=== PATIENT | male | born 1960 | race Hispanic/Latino ===

== ENCOUNTER 2016-07-12 18:15 | Emergency (ER) | payer MEDICARE ==
[2016-07-12 19:54] LABS: Hematocrit 39.3 % (35.5-45.6); Hemoglobin 12.9 gm/dl (11.8-15.2); Mean Corpuscular HGB Conc 33 % (32-34); Mean Corpuscular Hemoglobin 31 pg (28-32); Mean Corpuscular Volume 95 fl (84-94); Platelet Count 272 K/mm3 (140-440); Red Blood Count 4.12 M/mm3 (3.65-5.03); Red Cell Distribution Width 12.9 % (13.2-15.2); White Blood Count 7.4 K/mm3 (4.5-11.0)
[2016-07-12 20:05] LABS: Anion Gap 15 mmol/L; BUN/Creatinine Ratio 11.11; Blood Urea Nitrogen 10 mg/dL (9-20); Calcium 9.6 mg/dL (8.4-10.2); Carbon Dioxide 29 mmol/L (22-30); Chloride 99.3 mmol/L (98-107); Glucose 111 mg/dL (75-100); Potassium 4.4 mmol/L (3.6-5.0); Sodium 139 mmol/L (137-145)
--- NOTE | 2016-07-12 20:30 | XRay Report ---
FINAL REPORT EXAM: XR CHEST ROUTINE 2V HISTORY: SOB,wheezing TECHNIQUE: PA and lateral views of the chest PRIORS: None. FINDINGS: Lines, tubes, and devices: N/A Lungs and pleura: Trachea is normal in position. Surgical clips in the left hilum suggest prior lobectomy. Elevation of the left hemidiaphragm and blunting of the lateral left costophrenic angle are also likely due to volume loss from prior surgery. Lungs are clear of infiltrate, pleural effusion, vascular congestion, or pneumothorax. Cardiomediastinal silhouette: Cardiac and mediastinal silhouettes are unremarkable. Other: Bony structures demonstrates anterior wedging of T12 of indeterminate age. IMPRESSION: No acute cardiopulmonary process seen. Evidence for prior lobectomy on the left lung.
[2016-07-12] MEDS ORDERED: ATROVENT IH ONE ×3 (20:34→21:14)
[2016-07-12] MEDS ORDERED: PROVENTIL IH ONE ×2 (20:34→21:15)
[2016-07-13] MEDS ORDERED: PROVENTIL IH ONE (07:02)
[2016-07-13] MEDS ORDERED: DELTASONE PO ONE (07:02)
[2016-07-13] MEDS ORDERED: ATROVENT IH ONE (07:02)
--- NOTE | 2016-07-13 07:04 | Emergency Department Report ---
HPI - General Chief Complaint: Adult Asthma Time Seen by Provider: 07/13/16 06:54 - HPI HPI: This is a 55-year-old male presents to the emergency department with complaint of a few days of shortness of breath, wheezing, dry cough that he believes is an exacerbation of his asthma or COPD. He lost his prescription insurance and therefore has been out of his spiriva and his rescue inhaler and nebulized meds for 5 days. He says that he does have a primary care physician in [place], [place]. He is not oxygen dependent but "multiple doctors told me I need to be." He has a history of a left lobectomy secondary to bad pneumonia when he was 23 years of age. He is still a tobacco smoker but down to about 1 or 2 cigarettes per day but does use one dip can per day as well. No significant travel recently or any sick contacts at home. He denies any fever, nausea, vomiting, chest pain. ED Past Medical Hx - Past Medical History Hx Arthritis: Yes Hx Asthma: Yes Hx COPD: Yes Additional medical history: carpal tunnel sx,oseoporosis in hips - Surgical History Additional Surgical History: back x2, lung removed - Social History Smoking Status: Unknown if ever smoked Substance Use Type: None - Medications Home Medications: Home Medications Medication Instructions Recorded Confirmed Last Taken Type ALBUTEROL Inhaler [ProAir HFA 2 puff IH QID PRN #1 inhalation 07/13/16 Unknown Rx Inhaler] Tiotropium [Spiriva] 18 mcg IH QDAY #1 box 07/13/16 Unknown Rx predniSONE [Deltasone] 20 mg PO BID #10 tab 07/13/16 Unknown Rx ED Review of Systems ROS: Stated complaint: Asthma Other details as noted in HPI Comment: All other systems reviewed and negative Constitutional: denies: chills, fever Eyes: denies: eye pain, eye discharge, vision change ENT: denies: ear pain, throat pain Respiratory: cough, shortness of breath, wheezing Cardiovascular: denies: chest pain, edema Gastrointestinal: denies: abdominal pain, nausea, diarrhea Genitourinary: denies: urgency, dysuria Musculoskeletal: denies: back pain, joint swelling, arthralgia Skin: denies: rash, lesions Neurological: denies: headache, weakness, paresthesias Physical Exam - Physical Exam Vital Signs: Vital Signs 07/12/16 07/12/16 07/12/16 19:16 21:18 21:30 Temperature 98.4 F Pulse Rate 86 Pulse Rate [ 78 80 Posterior] Respiratory 18 Rate Respiratory 22 25 H Rate [Posterior ] Blood Pressure 134/90 O2 Sat by Pulse 99 Oximetry 07/13/16 06:10 Temperature 97.9 F Pulse Rate 91 H Pulse Rate [ Posterior] Respiratory 20 Rate Respiratory Rate [Posterior ] Blood Pressure 145/86 O2 Sat by Pulse 100 Oximetry Physical Exam: GENERAL: The patient is well-developed well-nourished. HEENT: Normocephalic. Atraumatic. Extraocular motions are intact. Patient has moist mucous membranes. Pupils equal reactive to light bilaterally. NECK: Supple. Trachea is midline. CHEST/LUNGS: Mild to moderate wheezing throughout the chest. No tachypnea or accessory muscle use. Occasional dry cough heard during examination. There is no respiratory distress noted. HEART/CARDIOVASCULAR: Regular. There is no tachycardia. There is no gallop rub or murmur. ABDOMEN: Abdomen is soft, nontender. Patient has normal bowel sounds. There is no abdominal distention. SKIN: Skin is warm and dry.. NEURO: The patient is awake, alert, and oriented. The patient is cooperative. The patient has no focal neurologic deficits. The patient has normal speech. MUSCULOSKELETAL: There is no tenderness or deformity. There is no limitation range of motion. There is no evidence of acute injury. ED Course Vital Signs 07/12/16 07/12/16 07/12/16 19:16 21:18 21:30 Temperature 98.4 F Pulse Rate 86 Pulse Rate [ 78 80 Posterior] Respiratory 18 Rate Respiratory 22 25 H Rate [Posterior ] Blood Pressure 134/90 O2 Sat by Pulse 99 Oximetry 07/13/16 06:10 Temperature 97.9 F Pulse Rate 91 H Pulse Rate [ Posterior] Respiratory 20 Rate Respiratory Rate [Posterior ] Blood Pressure 145/86 O2 Sat by Pulse 100 Oximetry ED Medical Decision Making - Lab Data Result diagrams: 07/12/16 19:35 07/12/16 19:35 - Radiology Data Radiology results: image reviewed interpreted by me: Chest x-ray did not show any acute process. Heart is normal shape and size. No effusions. No pneumothorax. No signs of pneumonia seen. - Medical Decision Making 55-year-old male with a history of asthma and COPD and tobacco abuse presents with some wheezing, shortness of breath and cough for the past few days after running out of his Spiriva and albuterol inhaler. Patient does have some mild to moderate bronchospasm but does not appear to be in any respiratory distress. Chest x-ray shows his previous left lobectomy but otherwise no signs of pneumonia, pleural effusions, pneumothorax or any acute processes. His CBC and metabolic panel did not show any significant lab abnormalities. He was given steroids and a second breathing treatment and upon reevaluation he is feeling better and only has some mild expiratory wheezing. Vital signs stable including being afebrile and no hypoxia. He appears safe for discharge home at this time. He was given a refill of his medications, encouragement to follow- up with his primary care doctor and he will return to the ER with any worsening of his symptoms or any acute distress. - Differential Diagnosis asthma, COPD, pneumonia, CHF Critical Care Time: No Critical care attestation.: If time is entered above; I have spent that time in minutes in the direct care of this critically ill patient, excluding procedure time. ED Disposition Clinical Impression: Asthma exacerbation, Tobacco abuse COPD (chronic obstructive pulmonary disease) Qualifiers: COPD type: chronic bronchitis Chronic bronchitis type: unspecified Qualified Code(s): J42 - Unspecified chronic bronchitis Disposition: DISCHARGED TO HOME OR SELFCARE Is pt being admited?: No Condition: Stable Instructions: Asthma (ED), Chronic Obstructive Pulmonary Disease (ED) Additional Instructions: These follow-up with your primary care doctor as soon as possible. Please try to quit all smoking and/or tobacco products. Return to the emergency department with any worsening of your symptoms or any acute distress. Prescriptions: ALBUTEROL Inhaler [ProAir HFA Inhaler] 2 puff IH QID PRN #1 inhalation PRN Reason: Shortness Of Breath predniSONE [Deltasone] 20 mg PO BID #10 tab Tiotropium [Spiriva] 18 mcg IH QDAY #1 box Referrals: PRIMARY CARE, [Primary Care Provider] - 3-5 Days Time of Disposition: 08:58
[2016-07-13 09:09] VITALS: BP 128/84
== END 2016-07-13 09:10 | disposition home or self-care (01) ==
LOC: ED 18:15
DX: J45.901 Unspecified asthma with (acute) exacerbation (principal); J42 Unspecified chronic bronchitis; M19.90 Unspecified osteoarthritis, unspecified site
CPT/HCPCS: 36415; 71020; 80048; 85027; 94640; 99284; J7512

== ENCOUNTER 2016-07-19 20:32 | Emergency (ER) | payer MEDICARE ==
--- NOTE | 2016-07-19 21:08 | Emergency Department Report ---
HPI - General Time Seen by Provider: 07/19/16 20:57 - HPI HPI: This is a 55-year-old male presents to the emergency department by EMS from the [facility] for a medical clearance. The patient is currently at the [facility] for depression. However today the patient had an exacerbation of his depression and the patient was made a 1013 by the facility and will be going to [facility] for inpatient treatment. However he was sent here for further evaluation and medical clearance. The patient's complaints are for generalized body aches. He has a significant history of arthritis and admits to the pain/ aches being chronic in nature. There has been no trauma, falls, altercations that would have caused his discomfort. The 1013 was signed by the psychiatry staff and it says that the patient has been feeling hopeless and depressed and verbalized to them that he was going to "end it all if I have to live like this. " ED Past Medical Hx - Past Medical History Previous Medical History?: Yes Hx Arthritis: Yes Hx Psychiatric Treatment: Yes (at [facility]) Hx Asthma: Yes Hx COPD: Yes Additional medical history: carpal tunnel sx,oseoporosis in hips - Surgical History Past Surgical History?: Yes Additional Surgical History: back x2, lung removed - Social History Smoking Status: Never Smoker Substance Use Type: None - Medications Home Medications: Home Medications Medication Instructions Recorded Confirmed Last Taken Type ALBUTEROL Inhaler [ProAir HFA 2 puff IH QID PRN #1 inhalation 07/13/16 Unknown Rx Inhaler] Tiotropium [Spiriva] 18 mcg IH QDAY #1 box 07/13/16 Unknown Rx predniSONE [Deltasone] 20 mg PO BID #10 tab 07/13/16 Unknown Rx ED Review of Systems ROS: Stated complaint: BODY PAIN Other details as noted in HPI Comment: All other systems reviewed and negative Constitutional: denies: chills, fever Eyes: denies: eye pain, eye discharge, vision change ENT: denies: ear pain, throat pain Respiratory: denies: cough, shortness of breath, wheezing Cardiovascular: denies: chest pain, palpitations Gastrointestinal: denies: abdominal pain, nausea, diarrhea Genitourinary: denies: urgency, dysuria Musculoskeletal: myalgia. denies: joint swelling Skin: denies: rash, lesions Neurological: denies: headache, weakness, paresthesias Physical Exam - Physical Exam Physical Exam: GENERAL: The patient is well-developed well-nourished. HEENT: Normocephalic. Atraumatic. Extraocular motions are intact. Patient has moist mucous membranes. NECK: Supple. Trachea is midline. CHEST/LUNGS: Clear to auscultation. There is no respiratory distress noted. HEART/CARDIOVASCULAR: Regular. There is no tachycardia. There is no gallop rub or murmur. ABDOMEN: Abdomen is soft, nontender. Patient has normal bowel sounds. There is no abdominal distention. SKIN: There is no rash. There is no edema. There is no diaphoresis. NEURO: The patient is awake, alert, and oriented. The patient is cooperative. The patient has no focal neurologic deficits. The patient has normal speech. MUSCULOSKELETAL: There is no tenderness or deformity. There is no limitation range of motion. There is no evidence of acute injury. ED Medical Decision Making - Lab Data Result diagrams: 07/19/16 21:17 07/19/16 21:17 - Medical Decision Making 55-year-old male presents emergency department for a medical clearance so that he can go from the voluntary portion of the large to the involuntary admission of [facility]. Patient's only complaint is some chronic body pains and aches. He is seen moving all of his extremities and does not appear in any acute distress. There is no recent trauma or altercation. Patient has been calm while in the emergency department. He had a complete blood count count and a basic metabolic panel and a CK level done that was unremarkable. Vital signs stable throughout his ED course. The patient appears cleared to return to his psychiatric facility. - Differential Diagnosis depression, schizophrenia, fibromyalgia, muscle spasm Critical Care Time: No Critical care attestation.: If time is entered above; I have spent that time in minutes in the direct care of this critically ill patient, excluding procedure time. ED Disposition Clinical Impression: Medical clearance for psychiatric admission Disposition: [id number]/[id number] PSY HOSP/PSY UNIT Is pt being admited?: No Condition: Good Additional Instructions: Please follow-up with a primary care physician once you're able to do so and done with [facility]. Return to the emergency department with any acute distress. Referrals: [facility] [Outside] - 3-5 Days Time of Disposition: 22:22
[2016-07-19 21:28] LABS: Basophils % (Auto) 0.7 % (0.0-1.8); Eosinophils % (Auto) 1.9 % (0.0-4.3); Hematocrit 37.8 % (35.5-45.6); Hemoglobin 12.7 gm/dl (11.8-15.2); Mean Corpuscular HGB Conc 34 % (32-34); Mean Corpuscular Hemoglobin 32 pg (28-32); Mean Corpuscular Volume 96 fl (84-94); Platelet Count 225 K/mm3 (140-440); Red Blood Count 3.96 M/mm3 (3.65-5.03); Red Cell Distribution Width 12.9 % (13.2-15.2); White Blood Count 7.1 K/mm3 (4.5-11.0)
[2016-07-19 22:15] LABS: Anion Gap 14 mmol/L; BUN/Creatinine Ratio 21.11; Blood Urea Nitrogen 19 mg/dL (9-20); Calcium 9.1 mg/dL (8.4-10.2); Carbon Dioxide 33 mmol/L (22-30); Chloride 101.8 mmol/L (98-107); Glucose 108 mg/dL (75-100); Potassium 4.2 mmol/L (3.6-5.0); Sodium 145 mmol/L (137-145)
== END 2016-07-19 23:00 ==
LOC: ED 20:32 → EEVIPCON 20:32 → ED 23:00
DX: Z00.8 Encounter for other general examination (principal); M19.90 Unspecified osteoarthritis, unspecified site; J45.909 Unspecified asthma, uncomplicated; J44.9 Chronic obstructive pulmonary disease, unspecified
CPT/HCPCS: 36415; 80048; 82550; 85025; 99283

== ENCOUNTER 2016-08-11 09:42 | Emergency (ER) | payer MEDICARE ==
[2016-08-11 11:14] VITALS: BP 132/63
--- NOTE | 2016-08-11 11:54 | Emergency Department Report ---
ED Medical Clearance HPI - General Chief complaint: Pain General Stated complaint: HX RX/OSTEOMYLITIS,BODY ACHES Time Seen by Provider: 08/11/16 11:20 Source: patient Mode of arrival: Ambulatory - History of Present Illness Initial comments: This is a 55-year-old male that presents to the ER with c/o of unable to fill Suboxone due to it being expensive. Patient stated went to [facility] pharmacy and was told that the medication for one month is $300. Patient stated he can not afford that. Patient stated he would like a prescription for narcotic that is cheaper. Patient stated he received Suboxone that his chronic back pain and chronic bilateral hip pain due to osteoarthritis and rheumatoid arthritis. Patient stated Suboxone has been filled by his primary care doctor last week. Patient has been taking [id number] ibuprofen, naproxen and Tylenol with mild relief. Patient denies any new symptoms or trauma to the area. Patient denies any trauma, numbness, tingling, fever, chills, joint swelling, joint numbness, chest pain, shortness of breath. Patient denies any complaints today upon this visit. Denies any drug allergies. MD Complaint: other (medication change) -: Gradual, year(s) Alledged Intoxication: No Compliant with Home Medications: Yes (as per patient) Traumatic Symptoms: denies traumatic injury Associated Symptoms: denies: chest pain, shortness of breath, palpitations, diaphoresis, denies other symptoms, confusion, cough, fever/chills, headaches, anorexia, malaise, nausea/vomiting, rash, seizure, syncope, weakness Treatments Prior to Arrival: none Home medications: Previous Rx's Medication Instructions Recorded Last Taken Type ALBUTEROL Inhaler [ProAir HFA 2 puff IH QID PRN #1 inhalation 07/13/16 Unknown Rx Inhaler] Tiotropium [Spiriva] 18 mcg IH QDAY #1 box 07/13/16 Unknown Rx predniSONE [Deltasone] 20 mg PO BID #10 tab 07/13/16 Unknown Rx Allergies/Adverse reactions: Allergies Allergy/AdvReac Type Severity Reaction Status Date / Time bee venom (honey bee) Allergy Swelling Verified 08/11/16 09:49 ED Review of Systems ROS: Stated complaint: HX RX/OSTEOMYLITIS,BODY ACHES Other details as noted in HPI Constitutional: denies: chills, fever Eyes: denies: eye pain, eye discharge, vision change ENT: denies: ear pain, throat pain Respiratory: denies: cough, shortness of breath, wheezing Cardiovascular: denies: chest pain, palpitations Endocrine: no symptoms reported Gastrointestinal: denies: abdominal pain, nausea, diarrhea Genitourinary: denies: urgency, dysuria Musculoskeletal: denies: back pain, joint swelling, arthralgia Skin: denies: rash, lesions Neurological: denies: headache, weakness, paresthesias Psychiatric: denies: anxiety, depression Hematological/Lymphatic: denies: easy bleeding, easy bruising ED Past Medical Hx - Past Medical History Hx Arthritis: Yes (rheumatoid) Hx Psychiatric Treatment: Yes (at [facility] / ANXIETY / DEPRESSION) Hx Asthma: Yes Hx COPD: Yes Additional medical history: carpal tunnel sx,osteoporosis in hips. chronic pain. HERNIAS - Surgical History Additional Surgical History: back x2, PARTIAL LEFT lung removed - Social History Smoking Status: Current Every Day Smoker Substance Use Type: Prescribed - Medications Home Medications: Home Medications Medication Instructions Recorded Confirmed Last Taken Type ALBUTEROL Inhaler [ProAir HFA 2 puff IH QID PRN #1 inhalation 07/13/16 Unknown Rx Inhaler] Tiotropium [Spiriva] 18 mcg IH QDAY #1 box 07/13/16 Unknown Rx predniSONE [Deltasone] 20 mg PO BID #10 tab 07/13/16 Unknown Rx ED Physical Exam - General Limitations: Physical Limitation General appearance: alert, in no apparent distress - Head Head exam: Present: atraumatic, normocephalic, normal inspection - Eye Eye exam: Present: normal appearance, PERRL, EOMI. Absent: scleral icterus, conjunctival injection, nystagmus, periorbital swelling, periorbital tenderness Pupils: Present: normal accommodation - ENT ENT exam: Present: normal exam, normal orophraynx, mucous membranes moist, TM's normal bilaterally, normal external ear exam - Neck Neck exam: Present: normal inspection, full ROM. Absent: tenderness, meningismus, lymphadenopathy, thyromegaly - Respiratory Respiratory exam: Present: normal lung sounds bilaterally. Absent: respiratory distress, wheezes, rales, rhonchi, stridor, chest wall tenderness, accessory muscle use, decreased breath sounds, prolonged expiratory - Cardiovascular Cardiovascular Exam: Present: regular rate, normal rhythm, normal heart sounds. Absent: bradycardia, tachycardia, irregular rhythm, systolic murmur, diastolic murmur, rubs, gallop - GI/Abdominal GI/Abdominal exam: Present: soft, normal bowel sounds. Absent: distended, tenderness, guarding, rebound, rigid, diminished bowel sounds - Rectal Rectal exam: Present: deferred - Extremities Exam Extremities exam: Present: normal inspection, full ROM, normal capillary refill. Absent: tenderness, pedal edema, joint swelling, calf tenderness - Back Exam Back exam: Present: normal inspection, full ROM. Absent: tenderness, CVA tenderness (R), CVA tenderness (L), muscle spasm, paraspinal tenderness, vertebral tenderness, rash noted - Neurological Exam Neurological exam: Present: alert, oriented X3, CN II-XII intact, normal gait, reflexes normal - Psychiatric Psychiatric exam: Present: normal affect, normal mood - Skin Skin exam: Present: warm, dry, intact, normal color. Absent: rash ED Course Vital Signs 08/11/16 08/11/16 09:52 11:13 Temperature 98.0 F 97.9 F Pulse Rate 82 84 Respiratory 18 16 Rate Blood Pressure 129/81 Blood Pressure 132/63 [Right] O2 Sat by Pulse 99 97 Oximetry - Reevaluation(s) Reevaluation #1: 08/11/16 11:57 Patient is sitting on the chair and watching TV with no signs of distress. ED Medical Decision Making - Medical Decision Making Ed course: This is a 55-year-old male that presents with medication change due to expensive Patient was examined by myself. Patient requested for a change of medication due to Suboxone being to $300 as per pharmacy. Patient stated that he cannot afford that. I used a good Rx website and provided the patient with information that with 14 tablets it will cost him $60 with a coupon nearest [facility] pharmacy. Patient stated he would like to coupon and stated that he can afford to pay $120 for 1 month supply. At the time of discharge the patient received a coupon with discharge instructions. Patient stated that he will fill the prescription when the further questions nor by the patient. At time time of discharge, the patient does not seem toxic or ill in appearance. No acute signs of distress noted. Patient agrees to discharge treatment plan of care. No further questions noted by the patient. ED Disposition Clinical Impression: Medication refill Disposition: DC-01 TO HOME OR SELFCARE Is pt being admited?: No Does the pt Need Aspirin: No Condition: Stable Instructions: Buprenorphine/Naloxone (By mouth) Additional Instructions: Use the [employer] 1 discount card a local [facility] pharmacy. As discussed with you that should be roughly around $60 for 14 pills. Follow-up with your primary care doctor in 3-5 days or symptoms worsen continue return back to emergency room as was possible. Referrals: [facility] [Other] - 3-5 Days
== END 2016-08-11 12:22 | disposition home or self-care (01) ==
LOC: ED 09:42
DX: Z76.0 Encounter for issue of repeat prescription (principal); J45.909 Unspecified asthma, uncomplicated; J44.9 Chronic obstructive pulmonary disease, unspecified; F17.200 Nicotine dependence, unspecified, uncomplicated
CPT/HCPCS: 99282

== ENCOUNTER 2016-09-20 10:55 | Inpatient (IN) | payer MEDICARE ==
[2016-09-20 11:38] LABS: Eosinophils % (Auto) 0.5 % (0.0-4.3); Hemoglobin 14.3 gm/dl (11.8-15.2); Mean Corpuscular HGB Conc 33 % (32-34); Mean Corpuscular Hemoglobin 29 pg (28-32); Mean Corpuscular Volume 88 fl (84-94); Platelet Count 276 K/mm3 (140-440); Red Blood Count 4.87 M/mm3 (3.65-5.03); Red Cell Distribution Width 12.7 % (13.2-15.2); White Blood Count 13.3 K/mm3 (4.5-11.0)
[2016-09-20 12:01] LABS: Anion Gap 18 mmol/L; BUN/Creatinine Ratio 16.66; Blood Urea Nitrogen 15 mg/dL (9-20); Calcium 9.7 mg/dL (8.4-10.2); Carbon Dioxide 27 mmol/L (22-30); Chloride 99.1 mmol/L (98-107); Glucose 101 mg/dL (75-100); Potassium 4.8 mmol/L (3.6-5.0); Sodium 139 mmol/L (137-145)
--- NOTE | 2016-09-20 12:22 | XRay Report ---
CHEST 2 VIEWS INDICATION: Shortness of breath. COMPARISON: 07/12/2016 FINDINGS: PA and lateral chest radiographs again demonstrate left perihilar surgical clips and left lung base pleural thickening blunting the left lateral costophrenic angle. Clear remainder aerated lungs. No significant pleural effusions or CHF. Lower thoracic spine degenerative changes/kyphosis again noted. CONCLUSION: No acute chest radiographic abnormality with stable left lung postsurgical changes/possible lobectomy and lower thoracic kyphosis again noted, as described. Thank you for the opportunity to participate in this patient's care.
[2016-09-20] MEDS ORDERED: DUONEB *Not for PRN Use IH ONE ×2 (12:53→23:17)
--- NOTE | 2016-09-20 12:53 | Emergency Department Report ---
Chief Complaint: Dyspnea/Respdistress Stated Complaint: SOB Time Seen by Provider: 09/20/16 12:49 - HPI History of Present Illness: PT states he has had productive cough x 1.5 weeks. PT states he has had asthma exacerbations last neb was last night. pt states he is out of solution - ROS Review of Systems: + cough + yellow productive cough @ times with spots of blood + back pain - Exam Vital Signs: Vital Signs 09/20/16 11:00 Temperature 98.4 F Pulse Rate 94 H Respiratory 20 Rate Blood Pressure 133/71 O2 Sat by Pulse 95 Oximetry Physical Exam: scattered exp wheeze MSE screening note: Focused history and physical exam performed. Due to findings the following was ordered: labs, [facility] ED Medical Decision Making - Lab Data Result diagrams: 09/20/16 11:23 09/20/16 11:23 ED Disposition for MSE Condition: Stable Referrals: PRIMARY CARE, [Primary Care Provider] - 3-5 Days
[2016-09-20 13:30] LABS: INR 1.1 (0.87-1.13)
[2016-09-20 13:31] LABS: Partial Thromboplastin Time 37.7 Sec. (24.2-36.6)
[2016-09-20] MEDS ORDERED: MAGNESIUM SULFATE 2GM/50ML 2 GM/50 ML BAG IV ONE (23:16)
[2016-09-20] MEDS ORDERED: MORPHINE IV ONE (23:49)
[2016-09-20] MEDS ORDERED: TORADOL IV ONE (23:49)
[2016-09-21] MEDS ORDERED: BABY ASPIRIN PO ONE (01:33)
--- NOTE | 2016-09-21 01:37 | Emergency Department Report ---
HPI - General Chief Complaint: Dyspnea/Respdistress Time Seen by Provider: 09/20/16 12:49 - HPI HPI: This is a 56-year-old male presents to the emergency department with a complaint of shortness of breath and chest pain. The patient has a history of COPD and asthma and still smokes cigarettes "with my breakfast" and uses a can of different throughout the day. He is out of his rescue inhalers and he is out of the nebulized medication for his nebulizer machine at home. The shortness of breath has been going on for the past few days however today the patient says that he developed some type of sharp chest pain that is unusual for him. It is midsternal and left-sided but does not radiate. He did not take anything for his symptoms prior to presentation. He denies any torsion or any swelling, fever, nausea, vomiting or diaphoresis. He also has a past medical history of rheumatoid arthritis, hypertension. He has a surgical history of partial lobectomy, multiple back surgeries. He says he does not currently have a primary care physician. No recent travel or sick contacts at home. ED Past Medical Hx - Past Medical History Hx Hypertension: Yes Hx Arthritis: Yes (rheumatoid) Hx [facility]: Yes ([facility] / [facility]XIETY / DEPRESSION) Hx Asthma: Yes Hx COPD: Yes Additional medical history: carpal tunnel sx,osteoporosis in hips. chronic pain. HERNIAS left partial lobectomy lung, two back surgeries, heavy smoker and marijuana user in past, dips tobacco, last alcohol use 20 yrs - Surgical History Past Surgical History?: Yes Additional Surgical History: back x2, PARTIAL LEFT lung removed - Social History Smoking Status: Light Tobacco Smoker Substance Use Type: Alcohol, Marijuana - Medications Home Medications: Home Medications Medication Instructions Recorded Confirmed Last Taken Type ALBUTEROL Inhaler [ProAir HFA 2 puff IH QID PRN #1 inhalation 07/13/16 Unknown Rx Inhaler] Tiotropium [Spiriva] 18 mcg IH QDAY #1 box 07/13/16 Unknown Rx predniSONE [Deltasone] 20 mg PO BID #10 tab 07/13/16 Unknown Rx ED Review of Systems ROS: Stated complaint: SOB Other details as noted in HPI Comment: All other systems reviewed and negative Constitutional: denies: chills, fever Eyes: denies: eye pain, eye discharge, vision change ENT: denies: ear pain, throat pain Respiratory: cough, shortness of breath, wheezing Cardiovascular: chest pain. denies: palpitations, edema Gastrointestinal: denies: abdominal pain, nausea, diarrhea Genitourinary: denies: urgency, dysuria Musculoskeletal: denies: joint swelling, arthralgia Skin: denies: rash, lesions Neurological: denies: headache, weakness, paresthesias Physical Exam - Physical Exam Vital Signs: Vital Signs 09/20/16 09/20/16 09/20/16 11:00 14:04 14:18 Temperature 98.4 F Pulse Rate 94 H Pulse Rate [ 81 84 Anterior Bilateral Throughout] Respiratory 20 Rate Respiratory 20 20 Rate [Anterior Bilateral Throughout] Blood Pressure 133/71 O2 Sat by Pulse 95 Oximetry 09/21/16 00:25 Temperature Pulse Rate Pulse Rate [ 80 Anterior Bilateral Throughout] Respiratory Rate Respiratory 18 Rate [Anterior Bilateral Throughout] Blood Pressure O2 Sat by Pulse Oximetry Physical Exam: GENERAL: The patient is well-developed well-nourished. HEENT: Normocephalic. Atraumatic. Extraocular motions are intact. Patient has moist mucous membranes. Pupils equal reactive to light bilaterally. NECK: Supple. Trachea is midline. CHEST/LUNGS: Mild wheezing throughout the chest. No tachypnea or accessory muscle use. There is no respiratory distress noted. HEART/CARDIOVASCULAR: Regular. There is no tachycardia. There is no gallop rub or murmur. Chest pain is not reproducible to palpation. ABDOMEN: Abdomen is soft, nontender. Patient has normal bowel sounds. There is no abdominal distention. SKIN: Skin is warm and dry. NEURO: The patient is awake, alert, and oriented. The patient is cooperative. The patient has no focal neurologic deficits. The patient has normal speech. MUSCULOSKELETAL: There is no tenderness or deformity. There is no limitation range of motion. There is no evidence of acute injury. ED Course Vital Signs 09/20/16 09/20/16 09/20/16 11:00 14:04 14:18 Temperature 98.4 F Pulse Rate 94 H Pulse Rate [ 81 84 Anterior Bilateral Throughout] Respiratory 20 Rate Respiratory 20 20 Rate [Anterior Bilateral Throughout] Blood Pressure 133/71 O2 Sat by Pulse 95 Oximetry 09/21/16 00:25 Temperature Pulse Rate Pulse Rate [ 80 Anterior Bilateral Throughout] Respiratory Rate Respiratory 18 Rate [Anterior Bilateral Throughout] Blood Pressure O2 Sat by Pulse Oximetry ED Medical Decision Making - Lab Data Result diagrams: 09/20/16 11:23 09/20/16 11:23 - EKG Data -: EKG Interpreted by Me EKG shows normal: sinus rhythm, axis, intervals, QRS complexes, ST-T waves Rate: normal - EKG Data When compared to previous EKG there are: previous EKG unavailable Interpretation: normal EKG - Radiology Data Radiology results: image reviewed interpreted by me: Chest x-ray does not show any acute process. No obvious signs of pneumonia. No pleural effusions. - Medical Decision Making 56-year-old male with a history of COPD and asthma presents with some typical short of breath but atypical chest pains for him. EKG does not show any signs of ST elevation WI, or dysrhythmia. Labs so far show negative troponins 2 and a negative d-dimer. The patient was given some steroids, magnesium, aspirin and nebulized breathing treatments. He still continues to have some discomfort. He has not had a recent full cardiac workup including stress test. He will be admitted to hospital for further evaluation and treatment has been accepted for admission by the hospitalist, Dr. Tavarez. - Differential Diagnosis WI, PE, Schuster dryness, pneumonia, asthma, COPD Critical Care Time: No Critical care attestation.: If time is entered above; I have spent that time in minutes in the direct care of this critically ill patient, excluding procedure time. ED Disposition Clinical Impression: Bronchospasm Chest pain Qualifiers: Chest pain type: unspecified Qualified Code(s): R07.9 - Chest pain, unspecified Dyspnea Qualifiers: Dyspnea type: shortness of breath Qualified Code(s): R06.02 - Shortness of breath; R06.00 - Dyspnea, unspecified; R06.01 - Orthopnea Disposition: OP ADMIT IP TO THIS HOSP Is pt being admited?: Yes Condition: Stable Instructions: Chest Pain (ED) Referrals: PRIMARY CARE, [Primary Care Provider] - 3-5 Days Time of Disposition: 01:39
[2016-09-21] MEDS ORDERED: DULCOLAX PR PRN (02:38)
[2016-09-21] MEDS ORDERED: SODIUM CHLORIDE FLUSH SYRINGE 10 ML IV PRN (02:38)
[2016-09-21] MEDS ORDERED: ZOFRAN IV PRN (02:38)
[2016-09-21] MEDS ORDERED: TYLENOL PO PRN (02:38)
[2016-09-21] MEDS ORDERED: MILK OF MAGNESIA PO PRN (02:38)
[2016-09-21] MEDS ORDERED: MORPHINE IV PRN (02:38)
--- NOTE | 2016-09-21 02:41 | History and Physical Report ---
History of Present Illness Date of examination: 09/21/16 History of present illness: 56-year-old man with a history of COPD, asthma comes emergency room with complaint of chest pain for 1 week which she describes as a sharp in epigastric area. The patient has been intermittent in nature, less than 5 minutes , intensity 5/10, no radiation any cannot identify exacerbating or relieving factors. Admits to nausea, shortness of breath, cough productive of yellow phlegm Review Of Systems: Constitutional: no fever, chills, weight loss Ears, eyes, nose, mouth and throat: no nasal congestion, no nasal discharge, no sinus pressure, blurry vision, diplopia Neck: No neck pain or rigidity. Cardiovascular orthopnea, palpitations Respiratory: No shortness of breath Gastrointestinal: abdominal pain, hematochezia Genitourinary : no dysuria, frequency , hematuria Musculoskeletal: no joint swelling or muscle ache Integumentary: no rash, no pruritis Neurological: no parathesias, focal weakness Endocrine: no cold or heat intolerance, no polyuria or polydipsia Hematologic/Lymphatic: no easy bruising, no easy bleeding, no gland swelling Allergic/Immunologic: no urticaria, no angioedema. PAST MEDICAL HISTORY:COPD, asthma PAST SURGICAL HISTORY: Hernia repair, partial lobectomy, back surgery 2 FAMILY HISTORY:Hypertension SOCIAL HISTORY: Denies tobacco, drugs, quit alcohol now for 80 days Medications and Allergies Allergies Allergy/AdvReac Type Severity Reaction Status Date / Time bee venom (honey bee) Allergy Swelling Verified 08/11/16 09:49 Home Medications Medication Instructions Recorded Confirmed Last Taken Type ALBUTEROL Inhaler [ProAir HFA 2 puff IH QID PRN #1 inhalation 09/21/16 Unknown Rx Inhaler] Tiotropium [Spiriva] 18 mcg IH QDAY #1 box 09/21/16 Unknown Rx Exam - Physical Exam Narrative exam: Gen. appearance: Patient lying in bed, no apparent distress HEENT: Normocephalic, atraumatic, pupils equally round and reactive to light, extraocular movement intact, and no sclericterus,. No JVD or thyromegaly or nodule,neck supple, no carotid bruit ,mucous membranes moist, no exudate or erythema Heart: S1, S2, regular rate and rhythm Lungs: Clear to auscultation bilaterally, breathing comfortable Abdomen: Positive bowel sounds, nontender, nondistended, no organomegaly Extremity: No edema, cyanosis, clubbing Skin: No rash, nodules, warm, dry Neuro: Oriented 3, cranial nerves II-12 intact, speech is fluent, motor and sensory intact - Constitutional Vitals: Temp Pulse Resp BP Pulse Ox 98.4 F 80 16 133/71 95 09/20/16 11:00 09/21/16 00:25 09/21/16 01:41 09/20/16 11:00 09/20/16 11:00 Results - Labs CBC & Chem 7: 09/21/16 02:50 09/21/16 02:50 Labs: Abnormal lab results 09/20/16 09/20/16 09/20/16 Range/Units 11:23 11:23 13:05 WBC 13.3 H (4.5-11.0) K/mm3 RDW 12.7 L (13.2-15.2) % Lymph % (Auto) 10.3 L (13.4-35.0) % Rock # 0.9 H (0.0-0.8) K/mm3 Seg Neutrophils % 81.8 H (40.0-70.0) % Seg Neutrophils # 10.9 H (1.8-7.7) K/mm3 APTT 37.7 H (24.2-36.6) Sec. Glucose 101 H (75-100) mg/dL - Imaging and Cardiology EKG: image reviewed Chest x-ray: image reviewed Assessment and Plan Assessment Chest pain COPD asthma Plan Admit to medicine Check cardiac enzymes, lipid profile and obtain a stress test Start DVT prophylaxis, IV morphine
[2016-09-21 02:59] LABS: Hematocrit 39.5 % (35.5-45.6); Hemoglobin 13.3 gm/dl (11.8-15.2); Mean Corpuscular HGB Conc 34 % (32-34); Mean Corpuscular Hemoglobin 30 pg (28-32); Mean Corpuscular Volume 88 fl (84-94); Platelet Count 205 K/mm3 (140-440); Red Blood Count 4.49 M/mm3 (3.65-5.03); Red Cell Distribution Width 12.8 % (13.2-15.2); White Blood Count 9.4 K/mm3 (4.5-11.0)
[2016-09-21 03:23] LABS: Creatine Kinase MB 2.1 ng/mL (0.0-4.0)
[2016-09-21 03:24] LABS: Anion Gap 19 mmol/L; BUN/Creatinine Ratio 17.14; Blood Urea Nitrogen 12 mg/dL (9-20); Calcium 9.7 mg/dL (8.4-10.2); Carbon Dioxide 27 mmol/L (22-30); Creatine Kinase 75 units/L (55-170); Glucose 85 mg/dL (75-100); Potassium 4.4 mmol/L (3.6-5.0); Sodium 136 mmol/L (137-145)
[2016-09-21 04:01] LABS: Blastocytes % (Manual) 0 %; Eosinophils % (Manual) 0 % (0.0-4.3)
[2016-09-21 04:02] LABS: Platelet Estimate Consistent w Auto
[2016-09-21 04:03] LABS: Diff Status Complete
[2016-09-21] MEDS ORDERED: LEXISCAN IV ONE ×2 (08:38→08:42)
--- NOTE | 2016-09-21 09:28 | Discharge Summary ---
Providers - Providers Date of Admission: 09/21/16 02:38 Attending physician: LACEY ELDER MD Primary care physician: MANOLO SOLORZANO MD Hospitalization Condition: Stable Hospital course: 56-year-old male with a past medical history of chronic COPD. Patient presented with chest pain 1 day. Went on to have ACS ruled out by negative troponins. Chest x-ray showed no acute findings. Patient does have a stress test that showed no evidence of ischemia. Discharge diagnoses Chest pain due to costochondritis Chronic COPD Disposition: DC-01 TO HOME OR SELFCARE Time spent for discharge: 33 minutes Core Measure Documentation - Palliative Care Palliative Care/ Comfort Measures: Not Applicable - Core Measures Any of the following diagnoses?: none Exam - Constitutional Vitals: Temp Pulse Resp BP Pulse Ox 97.8 F 74 18 127/64 95 09/21/16 07:28 09/21/16 07:28 09/21/16 07:28 09/21/16 07:28 09/21/16 07:28 General appearance: Present: no acute distress, well-nourished - EENT Eyes: Present: PERRL ENT: hearing intact, clear oral mucosa - Neck Neck: Present: supple, normal ROM - Respiratory Respiratory effort: normal Respiratory: bilateral: CTA - Cardiovascular Heart Sounds: Present: S1 & S2. Absent: rub, click - Extremities Extremities: pulses symmetrical, No edema Peripheral Pulses: within normal limits - Abdominal General gastrointestinal: Present: soft, non-tender, non-distended, normal bowel sounds Male genitourinary: Present: normal - Integumentary Integumentary: Present: clear, warm, dry - Musculoskeletal Musculoskeletal: gait normal, strength equal bilaterally - Psychiatric Psychiatric: appropriate mood/affect, intact judgment & insight - Neurologic Neurologic: CNII-XII intact, moves all extremities Plan Follow up with: PRIMARY CARE, [Primary Care Provider] - 3-5 Days Prescriptions: ALBUTEROL Inhaler [ProAir HFA Inhaler] 2 puff IH QID PRN #1 inhalation PRN Reason: Shortness Of Breath Tiotropium [Spiriva] 18 mcg IH QDAY #1 box
--- NOTE | 2016-09-21 10:19 | Admit Criteria Form ---
Admission Criteria Documentation: PULMONARY DISEASE GRG Clinical Indications for Admission to Inpatient Care ( Place 'X' for any and all applicable criteria): Hospital admission is needed for appropriate care of the patient because of 1 or more of the following(1)(2): [ ]I. Impending or actual respiratory arrest. See Respiratory Failure GRG guideline for severe respiratory disease and long-term mechanical ventilation patients. (3)(4) (5) [ X]II. Severe airflow or ventilation abnormalities (not responsive to emergency and observation care treatment as appropriate) as indicated by 1 or more of the following (6)(7)(8)(9) : [ ]a) PCO2 greater than 42 mm Hg (5.6 kPa) and pH less than 7.35 (new) [ ]b) Documented PCO2 increased more than 5 mm Hg (0.7 kPa) from disease baseline [ ]c) Airflow measurements[A] less than 60% of previous best or predicted (eg, peak expiratory flow rate less than 300 L/min) despite intensive emergent treatment(B) [X ]d) Required respiratory treatments that are performable only in acute inpatient setting [ ]III. Severe respiratory findings (not responsive to emergency and observation care treatment as appropriate) including 1 or more of the following(6)(9)(10): [ ]a) Respiratory distress as indicated by ALL of the following(6)(11): [ ]i) Patient with 1 or more of the following: [ ]1) Dyspnea (difficulty breathing) [ ]2) Tachypnea [ ]3) Abnormal breathing pattern (eg, chest retractions) [ ]4) Other evidence of difficulty breathing [ ]ii) Evidence of respiratory compromise indicated by 1 or more of the following: [ ]1) Hypoxemia [ ]2) Altered mental status [ ]3) Other evidence of respiratory compromise (eg, pulmonary edema on chest x-ray) [ ]b) Stridor [ ]c) Gross hemoptysis(12) [ ]d) Acute cyanosis [ ]IV. Chronic lung disease with severe deterioration (not responsive to emergency and observation care treatment as appropriate) as indicated by 1 or more of the following(7) (13): [ ]a) SaO2 5% below baseline in patient with chronic hypoxemia [ ]b) New requirement for supplemental oxygen to keep SaO2 at baseline or acceptable level [ ]c) Required supplemental oxygen performable only in acute inpatient setting [ ]d) Severe airflow or ventilation abnormalities [ ]e) Previouslymobile patient unable to walk between rooms [ ]f) Inability to eat or sleep due to dyspnea [ ]g) Altered mental status that is severe or persistent [ ]V. Empyema or lung abscess(14)(15) [ ]Vl. Severe atelectasis or lung collapse(16)(17) [ ]Duong. Tuberculosis requiring inpatient treatment as indicated by 1 or more of the following(18)(19)(20)(21): [ ]a) Diagnosis suspected (eg, symptomatic patient from endemic area or in high-risk population, with abnormal chest imaging) and cannot be ruled out within observation care timeframe (ie, sputum analysis, nucleic acid amplification techniques not rapidly available or not diagnostic) [ ]b) Severely symptomatic patient (eg, Hypoxemia, Hemodynamic instability, Tachypnea) [ ]c) Altzv-trcd-ajadmpbzj infection suspected in newly diagnosed patient (eg, treatment regimen may require near-term adjustment) [ ]d) Newly diagnosed patient at high-risk of short-term deterioration (eg, HIV positive, frail, immunocompromised, chronic lung disease) [ ]e) High infectivity suspected (eg, laryngeal disease, cavitary pulmonary lesions, ongoing positivity of sputum) and 1 or more of the following: [ ]i) Unexposed household contacts at high risk (eg, immunocompromised, elderly, infants, chronic lung disease) [ ]ii) Patient unable or unwilling to avoid exposing others (eg, significant psychiatric disease, substance abuse, developmental disability) [ ]f) Complication of tuberculosis requiring inpatient treatment (eg , constrictive pericarditis, tubercular meningitis) [ ]g) Hospitalization mandated by public health authority (eg, patient continually noncompliant with directly observed therapy) [ ]VIII. High-risk pulmonary infection as indicated by 1 or more of the following(22)(23)(24)(25): [ ]a) Temperature less than 95 degrees F (35 degrees C) or greater than 103.1 degrees F (39.5 degrees C) [ ]b) Hemodynamic instability [ ]c) Immunocompromised patient (eg, AIDS, post transplant, neutropenic)(26)(27) [ ]d) History of severe COPD(28) [ ]e) History of severely symptomatic congestive heart failure(29) [ ]f) Other high-risk comorbidity (eg, poorly controlled diabetes, cirrhosis, chronic renal insufficiency) [ ]g) Hypoxemia [ ]h) severe stridor (30) [ ]i) Outpatient, observation, or recovery facility therapy has failed, is not appropriate, or is not feasible. [ ]IX. Complications of tracheostomy that remains after emergency or observation level care(31)(32)(33)(34) [ ]X. Respiratory complications of organ transplant (eg, rejection, respiratory failure, respiratory infection)(27) [ ]XI. Severe pulmonary arterial hypertension or pulmonary vascular disease requiring inpatient care indicated by 1 or more of the following(35)(36)(37)(38): [ ]a) Initiation or change of vasodilators (IV, subcutaneous, or inhaled) or other vasoactive medications needed [ ]b) IV anticoagulation needed (eg, immediate anticoagulation necessary, alternatives not appropriate) [ ]c) Arterial or pulmonary artery catheter monitoring needed due to infusion or other treatment [ ]XII. Cystic fibrosis requiring inpatient care as indicated by 1 or more of the following(39)(40): [ ]a) Severe exacerbation that does not respond to intensified home therapy(41) [ ]b) Severe exacerbation with patient unable to perform prescribed treatments at home [ ]c) Pneumonia [ ]d) Pneumothorax(42) [ ]e) Atelectasis [ ]f) Hemoptysis(43) [ ]XIII. Bronchiectasis requiring inpatient care as indicated by 1 or more of the following(44)(45): [ ]a) Respiratory distress [ ]b) Severe exacerbation and outpatient or observation care therapy has failed, is not appropriate, or is not feasible. [ ]XIV. Sarcoidosis requiring inpatient care as indicated by 1 or more of the following(46)(47)(48): [ ]a) Respiratory distress [ ]b) Cardiac involvement with arrhythmia(49) [ ]c) Outpatient or observation care therapy has failed, is not appropriate, or is not feasible. [ ]XV. Intestitial lung disease requiring inpatient care as indicated by 1 or more of the following(50)(51): [ ]a) Respiratory distress [ ]b) Severe exacerbation and outpatient or observation care therapy has failed, is not appropriate, or is not feasible [ ]XVI. Allergic pneumonitis requiring inpatient care as indicated by 1 or more of the following(52): [ ]a) Respiratory distress [ ]b) Acute eosinophilic pneumonia [ ]c) [place] Lucina with cardiac involvement [ ]d) Outpatient or observation care therapy has failed, is not appropriate, or is not feasible [ ]XVIl. Severe right heart failure requiring inpatient care as indicated by 1 or more of the following(35)(53)(54): [ ]a) Respiratory distress [ ]b) Debilitating anasarca that remains after emergency or observation level care (eg, tissue [ ]c) breakdown with severe infection, inability to void due to edema) [C](41)(42)(43)(44) [ ]d) Hemodynamic instability [ ]e) Syncope [ ]f) Angina that requires inpatient care (eg, not treatable in emergency or observation level of care) [ ]g) Increasing organ failure (eg, liver congestion with significant and worsening or new elevation of transaminases) [ ]XVIll. Injury requiring inpatient care (medical) as indicated by 1 or more of the following(59)(60)(61) [ ]a) Significant inhalation injury (eg, smoke inhalation, other toxic inhalation)(62)(63)(64) [ ]b) Airway obstruction that remains or is unstable after emergency or observation level care(65)(66) [ ]c) Severe pain requiring acute inpatient management [ ]d) Lung contusion(67) [ ]e) Flail chest(68) [ ]f) Bronchial tree injury [ ]g) Air or fat emboli [ ]h) Other injury not treatable in emergency or observation level care (eg, hemothorax)(55) [ ]XlX. Pulmonary hemorrhage or significant hemoptysis(12)(43)(69) [ ]XXl. Complications of transplanted lung indicated by 1 or more of the following(70)(71) [ ]a) Acute graft rejection requiring inpatient management (eg, intravenous immunosuppression)(72)(73)(74) [ ]b) Failure of transplant lung as indicated by 1 or more of the following(75)(76): [ ]i) Anastomotic leak [ ]ii) Airway ischemia or necrosis [ ]iii) Airway fistula [ ]iv) Obstructing granulation tissue requiring intervention [ ]v) Bronchial stenosis or stricture requiring intervention [ ]vi) Tracheobronchomalacia requiring intervention [ ]vii) Severe airflow or ventilation abnormalities [ ]viii) Severe respiratory findings [ ]c) Infection requiring inpatient management (eg, Hemodynamic instability, need for intravenous antimicrobial treatment)(77)(78)(79)(80)(81)(82 [ ]d) Other complication of transplanted lung (eg, obliterative bronchiolitis, plastic bronchitis, thrombotic microangiopathy, constrictive pericarditis) requiring inpatient management(83)(84)(85)(86)(87) [ ]XXll. Inpatient palliative care needed.[D](88)(89)(90)(91) [ ]XXlll. Pulmonary Disease condition, symptom, or finding for which emergency and observation care have failed or are not considered appropriate. The original [facility] content created by [employer] has been revised. The portions of the content which have been revised are identified through the use of italic text or in bold, and [facility] has neither reviewed nor approved the modified material. All other unmodified content is copyright [facility]. Please see references footnoted in the original [facility] edition 2017 Admission Criteria Met: Yes
[2016-09-21 11:42] LABS: Creatine Kinase MB 2.9 ng/mL (0.0-4.0)
[2016-09-21 11:44] LABS: Creatine Kinase 76 units/L (55-170)
[2016-09-21 13:02] VITALS: BP 110/66
--- NOTE | 2016-09-21 14:46 | Treadmill Report ---
NUCLEAR STRESS TEST The patient is brought to the Cardiology lab and a nuclear stress test is performed with the administration of Lexiscan. Post-stress images reveal fairly homogeneous distribution of the isotope. Mild apical reversibility is noted and is of questionable significance. Mild inferior abnormalities are also present; however, there is a significant liver and gut uptake which interferes with the image acquisition. Accompanying gated study shows good systolic function with no wall motion abnormalities. Ejection fraction is calculated to be 68%. IMPRESSION: 1. This dual isotope study is essentially negative for significant reversible defects to indicate ischemia. Mild apical abnormalities are of questionable significance. 2. Good systolic function with no wall motion abnormalities. Suggest clinical correlation. JOB# [id number] KBM/NTS
--- NOTE | 2016-09-22 02:56 | Treadmill Report ---
NUCLEAR PERFUSION SCAN STRESS TEST REFERRING PHYSICIAN: Luz Tavarez MD PROTOCOL: The patient was brought to the stress lab in a post-absorptive state, given 10 mCi of technetium 99m at rest. The patient underwent rest imaging. The patient underwent Lexiscan stress test. At peak stress, the patient was given 26 mCi of technetium 99m. Shortly thereafter, the patient underwent stress imaging. Raw imaging reveals mild GI artifact. No significant motion artifact. SPECT imaging examined carefully in the horizontal long axis, vertical long axis, and short axis views. There is normal homogenous uptake of radioisotope in all reported segments. There is no evidence of significant fixed or reversible perfusion defects suggestive of prior infarction or ischemia. Gated wall motion reveals normal systolic thickening. Calculated ejection fraction of 64%. No TID. CONCLUSIONS: 1. Normal myocardial perfusion scan without evidence of active ischemia or prior infarction. 2. Normal left ventricular systolic performance without evidence of transient ischemic dilatation or stress-induced segmental wall motion abnormalities. CONCLUSIONS: 1. Normal myocardial perfusion scan without evidence of active ischemia or prior infarction. 2. Normal left ventricular systolic performance without evidence of transient ischemic dilatation or stress-induced segmental wall motion abnormalities. JOB# [id number] IAIN/CONNIE
== END 2016-09-21 15:21 | disposition home or self-care (01) | DRG 206 ==
LOC: ED 10:55 → 4A 09-21 02:38
PROVIDERS: ADMIT Internal Medicine; ATTEND Internal Medicine
DX: M94.0 Chondrocostal junction syndrome [Tietze] (principal); J44.9 Chronic obstructive pulmonary disease, unspecified; F17.201 Nicotine dependence, unspecified, in remission; M06.9 Rheumatoid arthritis, unspecified; I10 Essential (primary) hypertension; F41.9 Anxiety disorder, unspecified; F32.9 Major depressive disorder, single episode, unspecified; G89.29 Other chronic pain; M81.8 Other osteoporosis without current pathological fracture; F12.90 Cannabis use, unspecified, uncomplicated; J98.01 Acute bronchospasm; Z82.49 Family history of ischemic heart disease and other diseases of the circulatory system; Z91.030 Bee allergy status; Z72.89 Other problems related to lifestyle
CPT/HCPCS: 36415; 71020; 78452; 80048; 82550; 82553; 84484; 85007; 85025; 85379; 85610; 85730; 87040; 93005; 93010; 93017; 94640; 96374; 96375; A9502; J1885; J2270; J2785; J2930; J3475